=== PATIENT | male | born 1980 | race Caucasian/White ===

== ENCOUNTER 2022-08-25 05:40 | Emergency (ER) | payer SELFPAY ==
[~2022-08-25] VITALS: Ht 185.4 cm; Wt 86.4 kg
[2022-08-25 06:00] VITALS: BP 140/88
[2022-08-25] MEDS ORDERED: SULF1TAB49 PO (06:08)
== END 2022-08-25 06:22 | disposition home or self-care (01) ==
LOC: ER 05:42
DX: L03.116 Cellulitis of left lower limb (principal); Z88.0 Allergy status to penicillin
CPT/HCPCS: 99283; A6258

== ENCOUNTER 2022-09-13 18:26 | Emergency (ER) | payer MEDICAID ==
[~2022-09-13] VITALS: Ht 185.4 cm; Wt 81.8 kg
[~2022-09-13 18:26] MED LIST: SULF1TAB49 PO
[2022-09-13 18:55] VITALS: BP 137/87
[2022-09-13] MEDS ORDERED: dexamethasone sod phosphate 10mg/ml inj IV STA (20:11)
[2022-09-13] MEDS ORDERED: normal saline 1000ML IV soln IV ONE (20:15)
[2022-09-13] MEDS ORDERED: CLINDAmcin 900mg/NS 50ml IVPB 50 ML IV ONE (20:15)
[2022-09-13] MEDS ORDERED: iohexol 300mg/ml 100ml inj. ONE (20:18)
[2022-09-13 20:49] LABS: BASOPHILS # (AUTO) 0.1 X10'3 (0-0.2); BASOPHILS % (AUTO) 0.4 % (0-1); EOSINOPHILS # (AUTO) 0.2 X10'3 (0-0.9); EOSINOPHILS % (AUTO) 1.4 % (0-6); HEMATOCRIT 42.4 % (42.0-52.0); HEMOGLOBIN 14.3 g/dl (14.0-17.9); LYMPHOCYTES # (AUTO) 1.4 X10'3 (1.1-4.8); LYMPHOCYTES % (AUTO) 8.7 % (21-51); MEAN CORPUSCULAR HEMOGLOBIN 28.6 PG (27.0-31.0); MEAN CORPUSCULAR HGB CONC 33.8 g/dL (33.0-36.5); MEAN CORPUSCULAR VOLUME 84.6 FL (78-98); MEAN PLATELET VOLUME 7.8 FL (7.4-10.4); MONOCYTES # (AUTO) 1.5 X10'3 (0-0.9); MONOCYTES % (AUTO) 9.3 % (2-12); NEUTROPHILS # (AUTO) 12.9 X10'3 (1.8-7.7); NEUTROPHILS % (AUTO) 80.2 % (42-75); PLATELET COUNT 270 X10'3 (140-440); RED BLOOD COUNT 5.01 X10'6 (4.70-6.10); RED CELL DISTRIBUTION WIDTH 14.3 % (11.5-14.5); WHITE BLOOD COUNT 16.1 X10'3 (4.5-11.0)
[2022-09-13 21:02] LABS: ALANINE AMINOTRANSFERASE 19 U/L (12-78); ALBUMIN 3.9 G/DL (3.4-5.0); ALBUMIN/GLOBULIN RATIO 0.7 (1.1-1.5); ALKALINE PHOSPHATASE 130 IU/L (46-116); ANION GAP 8 (8-16); ASPARTATE AMINO TRANSFERASE 13 U/L (10-37); BILIRUBIN,TOTAL 0.3 MG/DL (0.1-1.0); BLOOD UREA NITROGEN 12 MG/DL (7-18); BUN/CREATININE RATIO 12.8 (5.4-32.0); CALCIUM 10.2 MG/DL (8.5-10.1); CHLORIDE 94 MMOL/L (99-107); CREATININE 0.94 MG/DL (0.60-1.10); GLUCOSE 125 MG/DL (70-104); POTASSIUM 3.8 MMOL/L (3.5-5.1); SODIUM 131 MMOL/L (135-145); TOTAL CARBON DIOXIDE 28.9 MMOL/L (24-32); TOTAL PROTEIN 9.2 G/DL (6.4-8.2); eGFR 88 ML/MIN
[2022-09-13] MEDS ORDERED: clindamycin-Cleocin 900mg/D5W 50 ML IV ONE (21:20)
[2022-09-13] MEDS ORDERED: LIDOcaine Viscous 15ml cup MM PRN (21:35)
[2022-09-13] MEDS ORDERED: fentaNYL/PF 50MCG/1 ML 2ML syringe IV ONE (21:35)
[2022-09-13] MEDS ORDERED: ketorolac trometh. 30mg/ml inj. IV ONE (21:35)
[2022-09-14] MEDS ORDERED: normal saline 1000ML IV soln IV ONE (00:10)
[2022-09-14] MEDS ORDERED: CefTRIAXone 2gm/D5W 50ml BAG 50 ML IV ONE (00:10)
[2022-09-14] MEDS ORDERED: metroNIDAZOLE-Flagyl 500mg/NS 100 ML IV STA (01:03)
--- NOTE | 2022-09-14 03:08 | NUR ---
spoke with the [facility] transfer center regarding consult from manager documentation ENT.
[2022-09-14] MEDS ORDERED: METR-159 PO (04:18)
[2022-09-14] MEDS ORDERED: AMOX250S62 PO (04:18)
[2022-09-14] MEDS ORDERED: CHLO473M3 PO (04:18)
[2022-09-14] MEDS ORDERED: DEXA0.5E2 PO (04:28)
== END 2022-09-14 05:07 | disposition home or self-care (01) ==
LOC: ER 18:26
DX: J36 Peritonsillar abscess (principal); Z20.822 Contact with and (suspected) exposure to COVID-19; Z88.0 Allergy status to penicillin
CPT/HCPCS: 36415; 70491; 80053; 83605; 84145; 85025; 87040; 87081; 87635; 87880; 96365; 96367; 96375; 99285; C9803; J0696; J1100; J1885; J3010; J3490; J7030; Q9967; 87186

== ENCOUNTER 2024-06-10 01:35 | Emergency (ER) | payer MEDICAID ==
[~2024-06-10] VITALS: Ht 185.4 cm; Wt 95.5 kg
[~2024-06-10 01:35] MED LIST changes: +CHLO473M13 PO; +DEXA0.5E2 PO; -SULF1TAB49 PO
[2024-06-10 01:36] VITALS: BP 144/99; PULSE 110; RESP 18; O2SAT 97
[2024-06-10] MEDS ORDERED: BUPR1FIL3 SL (01:50)
[2024-06-10 02:01] VITALS: TEMP 98.2
[2024-06-10] MEDS: buprenorphine/naloxone 8MG-2MG SUBlingual film SL SCH ×2 (02:07→02:13)
[2024-06-11] MEDS ORDERED: BUPR1FIL3 SL (19:11)
== END 2024-06-10 02:16 | disposition home or self-care (01) ==
LOC: ER 01:36
DX: F11.20 Opioid dependence, uncomplicated (principal); Z76.0 Encounter for issue of repeat prescription; Z88.0 Allergy status to penicillin; Z79.899 Other long term (current) drug therapy
CPT/HCPCS: 99283